=== PATIENT | female | born 1950 | race Caucasian/White ===

== ENCOUNTER 2019-12-26 15:07 | Outpatient (CLI) | payer MEDICARE, BC ==
--- NOTE | 2019-12-26 15:30 | RAD ---
EXAM: Two views chest PROVIDED CLINICAL HISTORY: Cough. COMPARISON: None FINDINGS: Cardiac silhouette is enlarged. Pulmonary vasculature is within normal limits. The lungs are clear. V ascular calcifications are seen in the thoracic aorta. There is exaggerated kyphosis of the thoracolumbar spine with compression fractures/burst fractures involving the T12, L1, and L2 vertebra l bodies which were seen on MRI lumbar spine on 07/15/2014 obtained from [facility]. IMPRESSION: 1. Cardiomegaly. 2. No acute cardiopulmonary process. 3. Prominent exaggerated kyphosis thoracolumbar spine due to compression fractures at this level whic h were better visualized on MRI lumbar spine obtained in 2015..
== END 2019-12-26 15:08 | disposition home or self-care (01) ==
LOC: NAV RAD 15:07
PROVIDERS: ATTEND Internal Medicine Pulmonary Disease
DX: J44.9 Chronic obstructive pulmonary disease, unspecified (principal); R05 Cough; I51.7 Cardiomegaly; M40.205 Unspecified kyphosis, thoracolumbar region; S32.008A Other fracture of unspecified lumbar vertebra, initial encounter for closed fracture
CPT/HCPCS: 71046

== ENCOUNTER 2020-11-09 15:25 | Emergency (ER) | payer OTHER, MEDICARE, BC | END 2020-11-09 18:45 | disposition home or self-care (01) | LOC: NAV ERS 15:25 | DX: S63.502A Unspecified sprain of left wrist, initial encounter (principal); S00.83XA Contusion of other part of head, initial encounter; K21.9 Gastro-esophageal reflux disease without esophagitis; E78.5 Hyperlipidemia, unspecified; I10 Essential (primary) hypertension; J44.9 Chronic obstructive pulmonary disease, unspecified; Z79.899 Other long term (current) drug therapy; W01.0XXA Fall on same level from slipping, tripping and stumbling without subsequent striking against object, initial encounter | CPT/HCPCS: 70450 ==

== ENCOUNTER 2021-11-16 11:20 | Outpatient (CLI) | payer MEDICARE, BC | END 2021-11-16 11:21 | disposition home or self-care (01) | LOC: NAV RAD 11:20 | PROVIDERS: ATTEND Nurse Practitioner Family | DX: M25.561 Pain in right knee (principal); M17.11 Unilateral primary osteoarthritis, right knee ==

== ENCOUNTER 2022-09-22 13:28 | Outpatient (CLI) | payer MEDICARE, BC | END 2022-09-22 13:29 | disposition home or self-care (01) | LOC: NAV RAD 13:28 | PROVIDERS: ATTEND Nurse Practitioner Family | DX: M25.552 Pain in left hip (principal); M47.816 Spondylosis without myelopathy or radiculopathy, lumbar region; M40.205 Unspecified kyphosis, thoracolumbar region; M43.8X6 Other specified deforming dorsopathies, lumbar region; M16.12 Unilateral primary osteoarthritis, left hip | CPT/HCPCS: 72100 ==